=== PATIENT | male | born 1950 | race Caucasian/White ===

== ENCOUNTER → 2016-10-18 | Outpatient (CLI) | payer MEDICARE ==
[~2016-10-18] VITALS: Ht 175.3 cm; Wt 113.9 kg
[~2016-10-18] MED LIST: ASPIRIN CHEWABL81 MG PO; LOSARTAN-HCTZ1 EAC2 PO; NAPROSYN EC 50500 MG PO; OMEPRAZOLE40 MG PO; TOPROL XL25 MG PO; VERAPAMIL ER240 MG PO; ZYLOPRIM 100 M100 MG PO
[2016-10-18 07:29] LABS: RED BLOOD COUNT 5.01 M/UL (4.20-5.50); WHITE BLOOD COUNT 7.1 K/UL (4.5-11.0)
[2016-10-18 07:41] LABS: BUN/CREATININE RATIO 29 (0-10)
== END | disposition home or self-care (01) ==
LOC: CATH 06:33
PROVIDERS: Internal Medicine
DX: I25.119 Atherosclerotic heart disease of native coronary artery with unspecified angina pectoris (principal); R94.39 Abnormal result of other cardiovascular function study; R07.9 Chest pain, unspecified; I10 Essential (primary) hypertension; E11.9 Type 2 diabetes mellitus without complications; E66.9 Obesity, unspecified; Z68.42 Body mass index [BMI] 45.0-49.9, adult; F17.210 Nicotine dependence, cigarettes, uncomplicated; Z88.3 Allergy status to other anti-infective agents; Z88.8 Allergy status to other drugs, medicaments and biological substances; Z79.82 Long term (current) use of aspirin; Z79.1 Long term (current) use of non-steroidal anti-inflammatories (NSAID); Z79.899 Other long term (current) drug therapy; M19.90 Unspecified osteoarthritis, unspecified site; M10.9 Gout, unspecified
CPT/HCPCS: 36415; 80048; 85025; 85610; 85730; 93005; C1769; C1894; J0461; J0583; J1644; J2250; J3010; J7030; Q9963